=== PATIENT | female | born 1950 | race Hispanic/Latino ===

== ENCOUNTER 2021-02-04 01:32 | Day surgery (SDC) | payer MEDICARE, SELFPAY ==
[2021-02-03 13:31] VITALS: BMI 36.6
[2021-02-04] VITALS (8 sets, daily range): BP systolic 132–169; BP diastolic 49–72; PULSE 53–78; RESP 14–17; TEMP 36.3–36.4; O2SAT 92–97
--- NOTE | ~2021-02-04 | XR_ITS ---
EXAMINATION: XR abdomen/kub 1V EXAM DATE: 02/04/2021 08:49 INDICATION: For left-sided lithotripsy. TECHNIQUE: Frontal projection(s) of the abdomen for interpretation. There is no prior study for caroline ludwig. FINDINGS: There is dense calcification along the proximal aspect of a left ureteral stent, probably a UPJ stone. Couple of other densities overlying the renal contours bilaterally, could be stool or le ss densely calcified nephrolithiasis. Density over right iliac bone most likely bone island. There is mild to moderate lumbar levoscoliosis. Nonobstructive bowel gas pattern. IMPRESSION: Left UPJ stone, stent in position. Possible bilateral nephrolithiasis, correlate with lisa or imaging. Reviewed, dictated and finalized at location A. IMPRESSION: Left UPJ stone, stent in position. Possible bilateral nephrolithias is, correlate with prior imaging.
--- NOTE | 2021-02-04 08:03 | ECG_ITS ---
Measurements Intervals [place] Rate: 48 P: 10 IA: 166 QRS: -5 QRSD: 97 T: 155 QT: 488 QTc: 438 Interpretive Statements SINUS BRADYCARDIA LEFT VENTRICULAR HYPERTROPHY AND ST-T CHANGE BORDERLINE ST-T WAVE ABNORMALITY- ANTEROLATERAL LEADS BASELINE ARTIFACT- I, III, AVR, AVL ABNORMAL ECG Electronically Signed On 02-04-2021 10:18:29 CDT by Ricardo Rincon D.O.
--- NOTE | 2021-02-04 09:28 | WPDANESEPPF ---
Anes - Initial Pre Proc Eval Procedure: Operation Date: 02/04/21 11:00 Proposed Procedures p Left Renal Extracorporeal Shock Wave Lithotripsy - Ramiro Lopez MD Date/Time: 02/04/21 09:28 Surgeon: Ramiro Lopez MD Pre Op Diagnosis: bilat kidney stones Patient Data Age: 71 Gender: F Height: 5 ft Weight: 85 kg Allergies Allergy/AdvReac Type Severity Reaction Status Date / Time No Known Allergies Allergy Verified 02/03/21 13:18 Home Medications Medication Instructions Recorded Confirmed Type chlorthalidone 12.5 mg PO QAM 02/03/21 02/03/21 History escitalopram oxalate 10 mg PO HS 02/03/21 02/03/21 History hydrocodone-acetaminophen 1 tablet PO Q4-6H PRN 02/03/21 02/04/21 History hyoscyamine sulfate 0.125 mg PO QID PRN 02/03/21 02/03/21 History metoprolol succinate 100 mg PO QAM 02/03/21 02/04/21 History phenazopyridine 100 mg PO TID PRN 02/03/21 02/04/21 History potassium chloride 10 meq PO EVERY OTHER DAY 02/03/21 02/03/21 History tamsulosin 0.4 mg PO DAILY 02/03/21 02/03/21 History Patient hx anesthesia problems: none Family hx anesthesia problems: none PMFSH Past Medical History Medical History (Updated 02/04/21 @ 09:29 by Rahat Hernández MD) Anxiety HTN (hypertension) WILLIAM on CPAP Surgical History Surgical History (Updated 02/04/21 @ 09:30 by Rahat Hernández MD) S/P arthroscopy of knee Social History Social History Smoking status: Never smoker Alcohol intake: former Alcohol use details: RARELY IN PAST Substance use: never Living arrangements: with family Additional living arrangements comments: Spiritual care concerns: No Anes - Eval Final PreProcedure Day of Procedure 02/04/21 09:28 Patient weight: obese Heart: regular rate and rhythm Lungs: clear to auscultation Airway: Mallampati scale class II Neurological: alert and oriented Last oral intake: >/= 8 hours ASA classification: II Emergent: no Anesthetic plan: proceed Anesthesia type and monitoring: general LMA and standard monitoring Informed Consent: The patient's anesthetic plan and its attendant risks and benefits were discussed with the patient/family/POA. Questions were solicited and answers provided to the satisfaction of the patient/family/POA.
[2021-02-04] MEDS: LACTATED RINGERS 1,000 ML 30 ML IV CONT (09:45)
--- NOTE | 2021-02-04 10:02 | WPDHPUPDATE1 ---
History and Physical Update Update Date/Time: 02/04/21 10:02 History and Physical has been reviewed, including an updated exam of the patient. There are NO changes in the patient's condition. Risks, benefits, and alternatives have been discussed and questions answered. Patient agrees to proceed with procedure.
[2021-02-04 10:05] LABS: Anion Gap 5 mmol/L (8-16); Blood Urea Nitrogen 15 mg/dL (7-17); Calcium 9.3 mg/dL (8.4-10.2); Carbon Dioxide 28 mmol/L (22-30); Chloride 108 mmol/L (98-107); Estimated CRCL calculation 68 ml/min; Estimated Glomerular Filt Rate > 60; Glucose 107 mg/dL (65-105); Partial Thromboplastin Time 28.1 SECONDS (22.3-36.8); Potassium 3.5 mmol/L (3.4-5.0); Prothrombin Time 13.4 Seconds (11.1-14.7); Sodium 141 mmol/L (137-145)
[2021-02-04] MEDS: ceFAZolin 2 GM/D5W 50 ML 2 GM/50 ML BAG IVPB (10:15)
--- NOTE | 2021-02-04 10:42 | PM.PROC ---
Procedure Note - Detailed Date of procedure: 02/04/21 Pre-op diagnosis: bilat kidney stones Left UPJ calculus 9 mm Post-op diagnosis: same Procedure performed: ESWL of left UPJ calculus Description of procedure: Patient is taken the operative suite and correctly identified. Once anesthesia was obtained she was positioned with both planes focused on the stone. Two thousand five hundred shocks were given to the stone. Patient tolerated procedure well without any complications and was taken recovery room stable condition. She will follow-up with Dr. Donovan and in about 7-10 days with a KUB. Anesthesia: GLMA Surgeon: Ramiro Lopez MD Drains: Yes Packing: No Pathology: none sent Complications: No immediate complications Condition: stable Disposition: PACU
--- NOTE | 2021-02-04 12:40 | SUR.PHASEII ---
DR. CHOI CALLED [facility]: [facility]. HE HAD CALLED THEM INTO PHARMACY.
== END 2021-02-04 12:42 | disposition home or self-care (01) ==
PROVIDERS: PCP Family Medicine; Visit Provider Urology
PROC: (CPT 50590; principal; 2021-02-04 11:00)
DX: N20.0 Calculus of kidney (principal); F41.9 Anxiety disorder, unspecified; G47.33 Obstructive sleep apnea (adult) (pediatric); Z68.34 Body mass index [BMI] 34.0-34.9, adult; R00.1 Bradycardia, unspecified; M19.90 Unspecified osteoarthritis, unspecified site; Z79.82 Long term (current) use of aspirin
CPT/HCPCS: 50590; 36415; 74018; 80048; 85610; 85730; 93005; J0690; J1100; J2405; J2704; J7120